=== PATIENT | female | born 1990 | race African-American/Black ===

== ENCOUNTER 2018-09-25 04:36 | Inpatient (IN) | payer OTHER ==
[2018-09-25] MEDS ORDERED: Ondansetron PF 4 MG/2 ML Vial IVP PRN ×2 (06:05→09:48)
[2018-09-25] MEDS ORDERED: Misoprostol 200 MCG TAB PR PRN (06:05)
[2018-09-25] MEDS ORDERED: Lidocaine 1% (PF) 30 ML VIAL SC PRN (06:05)
[2018-09-25] MEDS ORDERED: Butorphanol Tartrate 1 MG/ML VIAL SLOW IVP PRN (06:05)
[2018-09-25] MEDS ORDERED: Methylergonovine 0.2 MG/ML VIAL IM PRN ×2 (06:05→16:17)
[2018-09-25] MEDS ORDERED: Ibuprofen 800 MG TAB PO PRN (06:05)
[2018-09-25] MEDS ORDERED: hydrALAZINE 20 MG/ML VIAL SLOW IVP PRN ×2 (06:05→16:17)
[2018-09-25] MEDS ORDERED: Promethazine HCl 25 MG/ML VIAL IM PRN ×2 (06:05→09:48)
[2018-09-25] MEDS ORDERED: HYDROcodone/Acetaminophen 5/325 mg Tablet PO PRN ×4 (06:05→16:17)
[2018-09-25] MEDS ORDERED: NS w/ Oxytocin 10 units 500 ML IV SCH (06:15)
[2018-09-25] MEDS: Lactated Ringer's 1,000 ML IV SCH ×3 (06:25→11:30)
[2018-09-25 06:39] LABS: Hemoglobin 12.8 g/dL (12.0-16.0); Mean Corpuscular HGB CONC 31.7 g/dL (32.0-36.0); Mean Corpuscular Volume 88.3 fL (78.0-98.0); Mean Platelet Volume 9.6 fL (7.4-10.4); Platelet Count 178 thou/uL (130-400); RBC Distribution Width 13.3 % (11.5-14.5); Red Blood Cell (RBC) Count 4.56 mill/uL (4.20-5.40); White Blood Cell (WBC) Count 6.2 thou/uL (4.8-10.8)
[2018-09-25 06:42] VITALS: BMI 40.4
[2018-09-25] MEDS ORDERED: Fentanyl 4 mcg/Bup 0.1% Cadd 100 ML ONE (07:08)
[2018-09-25 07:20] LABS: HBSAg Index 0.23 S/CO (0-0.99); Hep B Surf Ag Non-Reactive S/CO (NonReactive); Syphilis Antibody Nonreactive (Nonreactive); Syphilis Antibody Index 0.04 S/CO (<1.00 Non-Reactive)
[2018-09-25] MEDS ORDERED: Naloxone HCl 0.4 mg/ml Vial IVP PRN ×2 (09:48)
[2018-09-25] MEDS ORDERED: Acetaminophen 325 MG TAB PO PRN (09:48)
[2018-09-25] MEDS ORDERED: ePHEDrine/0.9% NaCl/PF SYRINGE 50 mg/10 ml SLOW IVP PRN (09:48)
[2018-09-25] MEDS ORDERED: Lactated Ringer's 500 ML IV PRN (09:48)
[2018-09-25] MEDS ORDERED: diphenhydrAMINE 50 MG/ML VIAL IVP PRN (09:48)
[2018-09-25] MEDS ORDERED: Fentanyl 4 mcg/Bupivacaine 0.1% Cassette 100 ML EPIDURAL SCH (10:00)
[2018-09-25] MEDS ORDERED: Communication Order-Pharmacy FS SCH (10:00)
[2018-09-25] MEDS ORDERED: Lidocaine 2% MPF 10 ML AMP (For Epidural Use) ONE (11:11)
[2018-09-25] MEDS: NS / Oxytocin 40 units/1000ml 1,000 ML IV PRN ×2 (12:40→15:34)
--- NOTE | 2018-09-25 16:12 | PDOC.LDHP ---
Labor and Delivery H&P HPI: Her water broke at 0338 this morning. She was not having contractions before then. By the time she was on her way from [place], she was having contractions Current gestational age (weeks): 38 (5 days) Due date: 10/04/18 Dating criteria: last menstrual period (c/w CRL in first trimester) Grav: 1 Para: 0 Current complications: other (Obesity) Current medications: pre- vitamins Previous surgical history: none Allergies/Adverse Reactions: Allergies Allergy/AdvReac Type Severity Reaction Status Date / Time No Known Drug Allergies Allergy Verified 09/25/18 06:40 Social history: none - Physical Exam Vital signs reviewed and normal: yes General: breathing through contractions Lungs: nonlabored breathing Abdomen: gravid Extremeties: trace edema FHT: category 2 (Prolonged decel x 5 mins) - Vaginal Exam cm dilated: 5 Effacement: 75% Station: -1 - OB Labs Blood type: O RH: positive Antibody Screen: negative HIV: negative RPR: negative HEPSAg: negative 1 hour GCT: negative GBS: negative Urine drug screen: negative Rubella: immune - Assessment L&D Assessment: term patient in labor - Plan Plan: admit to L&D
[2018-09-25] MEDS ORDERED: NS / Oxytocin 40 units/1000ml 1,000 ML IV SCH (16:17)
[2018-09-25] MEDS ORDERED: Adacel (T-DAP) 0.5 ML SYRINGE IM ONE (16:17)
[2018-09-25] MEDS ORDERED: Bisacodyl 10 MG SUPP PR PRN (16:17)
[2018-09-25] MEDS ORDERED: Lanolin Ointment 7 GM TUBE TOP PRN (16:17)
[2018-09-25] MEDS ORDERED: Milk Of Magnesia 30 ML UDCUP PO PRN (16:17)
[2018-09-25] MEDS ORDERED: Misoprostol 200 MCG TAB VAG PRN (16:17)
--- NOTE | 2018-09-25 16:18 | PDOC.OPDEL ---
OB Operative/Delivery Note Delivery Dr/Surgeon: Shahram Kay CNM Pre-Delivery Diagnosis: active labor, ruptured membrane Procedure/Post Delivery Dx: spontaneous vaginal delivery Weeks gestation: 38 Anesthesia: epidural - Findings A Sex: male Weight: 6 lb 8 oz - 1 min: 8 - 5 min: 9 - Additional Findings/Plan Placenta delivered: spontaneous Repaired Obstetrical Laceration: 1st degree Estimated blood loss: 200mL Compilations/Other Findings: compound delivery of the left hand. Post delivery plan: routine recovery
[2018-09-25] MEDS: Ferrous Sulfate 325 MG TAB PO SCH (17:30)
[2018-09-25] MEDS: Docusate Calcium (SURFAK) 240 MG CAP PO SCH (21:43)
[2018-09-25] MEDS: Ibuprofen 800 MG TAB PO SCH (23:33)
[2018-09-26] MEDS: Ibuprofen 800 MG TAB PO SCH ×3 (06:46→21:47)
[2018-09-26] MEDS: Ferrous Sulfate 325 MG TAB PO SCH ×2 (07:22→15:52)
[2018-09-26] MEDS ORDERED: Benzocaine-Menthol 82.5 ML CAN TOP PRN (09:10)
[2018-09-26] MEDS: Prenatal Vitamin 1 TAB PO SCH (09:11)
[2018-09-26] MEDS: Docusate Calcium (SURFAK) 240 MG CAP PO SCH ×2 (09:11→21:47)
--- NOTE | 2018-09-26 13:17 | PDOC.PP ---
Post Progress Note Post Day #: 1 Subjective: She is feeling great. No concerns except with . He will latch but not suck well except the first time. PO intake tolerated: yes Flatus: yes Ambulation: yes Vital Signs (12 hours) Temp Pulse Resp BP Pulse Ox 09/26/18 12:04 98.4 F 86 20 105/58 L 09/26/18 08:16 98.6 F 80 20 99/56 L 97 09/26/18 04:22 98.2 F 81 18 103/56 L Weight Weight 214 lb - Physical Examination General: NAD Respiratory: non-labored breathing Abdominal: + bowel sounds, lochia (minimal) Extremities: negative homans (B) Skin: no rash Neurological: no gross focal deficits Psychiatric: A&Ox3, normal affect Result Diagrams: 09/25/18 06:20 Additional Labs: Post Labs Blood Type O POSITIVE 09/25/18 06:57 Hep Bs Antigen Non-Reactive S/CO (NonReactive) 09/25/18 06:20 (1) 38 weeks gestation of Code(s): Z3A.38 - 38 WEEKS GESTATION OF Status: Acute (2) (spontaneous vaginal delivery) Code(s): O80 - ENCOUNTER FOR FULL-TERM UNCOMPLICATED DELIVERY Status: Acute - Assessment/Plan A: s/p with nml day one exam P: routine post care. Edu. on NML breast feeding expectation x 24-48 hrs.
[2018-09-27] MEDS: Ibuprofen 800 MG TAB PO SCH (05:22)
--- NOTE | 2018-09-27 07:25 | PDOC.PP ---
Post Progress Note Post Day #: 2 Subjective: Doing well and ready for discharge PO intake tolerated: yes Flatus: yes Ambulation: yes Vital Signs (12 hours) Temp Pulse Resp BP Pulse Ox 09/27/18 04:20 97.8 F 89 18 104/64 98 09/26/18 23:05 98.0 F 85 18 101/57 L 98 09/26/18 19:30 98.1 F 81 18 99/57 L 100 Weight Weight 214 lb - Physical Examination General: NAD Cardiovascular: no m/r/g Respiratory: clear to auscultation bilaterally Abdominal: + bowel sounds, lochia, no distention, appropriately TTP Extremities: negative homans (B) Skin: no rash Neurological: no gross focal deficits Psychiatric: A&Ox3, normal affect Result Diagrams: 09/25/18 06:20 Additional Labs: Post Labs Blood Type O POSITIVE 09/25/18 06:57 Hep Bs Antigen Non-Reactive S/CO (NonReactive) 09/25/18 06:20 (1) (spontaneous vaginal delivery) Code(s): O80 - ENCOUNTER FOR FULL-TERM UNCOMPLICATED DELIVERY Status: Acute - Assessment/Plan Doing well. Baby in room- circ by rianna this AM. OK for discharge to home. Follow up 6 weeks.
[2018-09-27] MEDS: Ferrous Sulfate 325 MG TAB PO SCH (07:59)
[2018-09-27] MEDS: Docusate Calcium (SURFAK) 240 MG CAP PO SCH (07:59)
[2018-09-27] MEDS: Prenatal Vitamin 1 TAB PO SCH (07:59)
[2018-09-27 08:23] VITALS: BP 124/57; TEMP 97.9
== END 2018-09-27 11:05 | disposition home or self-care (01) | DRG 807 ==
LOC: L&D/OP 04:36 → L&D 05:55 → 3SW 15:51
PROVIDERS: ADMIT Student in an Organized Health Care Education/Training Program; ATTEND Student in an Organized Health Care Education/Training Program
PROC: 10E0XZZ Delivery of Products of Conception, External Approach (ICD-10-PCS; principal; 2018-09-25)
PROC: 0HQ9XZZ Repair Perineum Skin, External Approach (ICD-10-PCS; 2018-09-25)
DX: O99.214 Obesity complicating childbirth (principal); Z37.0 Single live birth; E66.9 Obesity, unspecified; O70.0 First degree perineal laceration during delivery; O32.6XX0 Maternal care for compound presentation, not applicable or unspecified; Z3A.38 38 weeks gestation of pregnancy
CPT/HCPCS: 36415; 51702; 85027; 86780; 86850; 86900; 86901; 87340; 99285; J2001; J2590